=== PATIENT | male | born 1960 ===

== ENCOUNTER → 2018-06-26 | Outpatient (CLI) | payer OTHER ==
--- NOTE | 2018-06-22 11:05 | NUR ---
CALLED AND LEFT INSTRUCTIONS TO CALL OUR NUMBER. ALSO LEFT INSTRUCTIONS FOR THE PROCEDURE
[2018-06-22 14:49] VITALS: BP 135/68; PULSE 90
[~2018-06-26] VITALS: Ht 193 cm; Wt 111.3 kg
[~2018-06-26] MED LIST: ASPIRIN 81M81 MG/TA2 PO; MASON NATURAL2000 IU PO; NEURONTIN300 MG/CAP PO; OMEGA-3 FISH1000 MG PO; PRINZIDE 25 MG-1 TAB PO; ULTRAM 50MG TAB50 MG PO; VIAGRA50 M1 PO; ZANTAC 150MG T150 MG PO; ZOCOR 10MG10 MG PO; ZYRTEC 10MG10 MG PO
[2018-06-26 09:07] VITALS: BP 146/79; PULSE 69
[2018-06-26 10:02] VITALS: BP 154/75; PULSE 64
[2018-06-26 10:34] VITALS: BP 135/72; PULSE 59
--- NOTE | 2018-06-26 10:35 | NUR ---
PT TAKEN TO POV. PT HAD NO SEDATION AND HE WISHED TO DRIVE. HIS DOES NOT DRIVE.
== END ==
LOC: COL.RAD 08:43
DX: R59.0 Localized enlarged lymph nodes (principal)

== ENCOUNTER → 2018-07-06 | Outpatient (CLI) | payer OTHER ==
--- NOTE | 2018-07-03 12:35 | NUR ---
CALLED AND LEFT INSTRAUCTIONS FOR PROCEDURE, TIME AND DATE WITH CALL BACK NUMBER
[~2018-07-06] VITALS: Ht 193 cm; Wt 109.4 kg
[2018-07-06 09:14] VITALS: BP 146/88; PULSE 76
[2018-07-06 10:10] VITALS: BP 160/88; PULSE 81
[2018-07-06 10:20] VITALS: BP 148/78; PULSE 64
--- NOTE | 2018-07-06 10:23 | NUR ---
PT IS READY TO GO. PT AND STAFF AMBULATED TO LOBBY AND PT LEFT.
== END ==
LOC: COL.RAD 08:45
DX: R59.0 Localized enlarged lymph nodes (principal)